=== PATIENT | female | born 1960 | race Caucasian/White ===

== ENCOUNTER 2018-02-27 17:56 | Emergency (ER) | payer OTHER, SELFPAY ==
[2018-02-27] MEDS: NS 1,000 ML IV ×2 (19:31)
[2018-02-27 19:44] LABS: BASO # 0.1 10^3/uL (0.0-0.2); BASO % 0.8 % (0.0-1.0); EOS # 0.4 10^3/uL (0.0-0.50); EOS % 4.5 % (0.0-3.0); HEMATOCRIT 48.8 % (36.0-47.0); HEMOGLOBIN 16.8 g/dl (12.0-15.5); IMMATURE GRANULOCYTE % 0.4 % (0-3.0); LYMPH # 1.7 10^3/uL (1.5-4.5); LYMPH % 17.8 % (24.0-44.0); MEAN CORPUSCULAR HEMOGLOBIN 27.6 pg (27.0-33.0); MEAN CORPUSCULAR HGB CONC 34.4 g/dl (32.0-36.5); MEAN CORPUSCULAR VOLUME 80.3 fl (80.0-96.0); MONO # 1.1 10^3/uL (0.0-0.8); NEUTROPHILS # 6.1 10^3/uL (1.8-7.7); NEUTROPHILS % 64.5 % (36.0-66.0); PLATELET COUNT, AUTOMATED 614 10^3/uL (150-450); RED BLOOD COUNT 6.08 10^6/uL (4.00-5.40); RED CELL DISTRIBUTION WIDTH 13.4 % (11.5-14.5); WHITE BLOOD COUNT 9.5 10^3/uL (4.0-10.0)
[2018-02-27 20:01] LABS: OSMOLALITY SERUM 290 MOSM/KG (275-295)
[2018-02-27 20:07] LABS: ESTIMATED AVERAGE GLUCOSE 200 MG/DL (60-110); HEMOGLOBIN A1c 8.6 %
[2018-02-27 20:10] LABS: ACETONE/KETONE 20.17 MG/DL (<2.81); ALBUMIN 4.3 GM/DL (3.2-5.2); ALKALINE PHOSPHATASE 70 U/L (45-117); ALT/SGPT 35 U/L (12-78); ANION GAP 10 MEQ/L (8-16); AST/SGOT 30 U/L (7-37); BILIRUBIN,DIRECT 0.3 MG/DL (0.0-0.2); BILIRUBIN,TOTAL 1.5 MG/DL (0.2-1.0); BLOOD UREA NITROGEN 21 MG/DL (7-18); CALCIUM LEVEL 10.1 MG/DL (8.5-10.1); CARBON DIOXIDE LEVEL 33 MEQ/L (21-32); CHLORIDE LEVEL 92 MEQ/L (98-107); CREATININE FOR GFR 0.74 MG/DL (0.55-1.30); GLOMERULAR FILTRATION RATE > 60.0 (>51); GLUCOSE, FASTING 157 MG/DL (70-100); LIPASE 290 U/L (73-393); MAGNESIUM LEVEL 2.2 MG/DL (1.8-2.4); PHOSPHORUS LEVEL 4.3 MG/DL (2.5-4.9); POTASSIUM SERUM 3.3 MEQ/L (3.5-5.1); SODIUM LEVEL 135 MEQ/L (136-145); TOTAL PROTEIN 8.2 GM/DL (6.4-8.2)
[2018-02-27 20:43] LABS: KETONE, URINE AUTO RFX 2+ mg/dL (NEGATIVE); MUCUS, URINE RFX LARGE (NEGATIVE); RBC, URINE AUTO RFX 1 /HPF (0-3); SPECIFIC GRAVITY UR AUTO RFX 1.024 (1.002-1.035); SQUAM EPITHELIAL CELL UR AURFX 1 /HPF (0-6); WBC, URINE AUTO RFX 5 /HPF (0-3)
[2018-02-27 20:44] LABS: LEUKOCYTE ESTERASE UR AUTO RFX 1+ (NEGATIVE); NITRITE, URINE AUTO RFX POSITIVE (NEGATIVE)
[2018-02-27] MEDS: PROMETHAZINE INJ 25 MG/ML VIAL (J2550) IV ×2 (20:45)
[2018-02-27 21:17] LABS: VENOUS BASE EXCESS 2.1 (-2.0-2.0); VENOUS HCO3 27.1 MEQ/L (23.0-27.0); VENOUS O2 SATURATION 75.7 % (60.0-80.0); VENOUS PARTIAL PRESSURE CO2 43.5 mmHg (38.0-50.0); VENOUS PARTIAL PRESSURE O2 41.2 mmHg (30.0-50.0); VENOUS PH 7.413 UNITS (7.330-7.430); VENOUS STANDARD HCO3 25.7 MEQ/L; VENOUS TOTAL CO2 28.5 MEQ/L (24.0-28.0)
[2018-02-27] MEDS: METOCLOPRAMIDE INJ 10MG/2ML VIAL (J2765) IV ×2 (21:50)
[2018-02-27] MEDS: NS 500 ML IV ×2 (21:51)
[2018-02-27] MEDS: ACETAMINOPHEN TAB 650MG DOSE (2X325MG) PO ×2 (23:55)
[2018-02-27] MEDS: CIPROFLOXACIN 500 MG TAB PO ×2 (23:55)
[2018-03-02 10:50] LABS: BEDSIDE GLUCOSE 181 MG/DL (70-105)
== END 2018-02-27 23:58 | disposition home or self-care (01) ==
LOC: M ED 17:56
DX: E11.65 Type 2 diabetes mellitus with hyperglycemia (principal); E86.0 Dehydration; N30.00 Acute cystitis without hematuria; I10 Essential (primary) hypertension; E78.5 Hyperlipidemia, unspecified; G43.909 Migraine, unspecified, not intractable, without status migrainosus; K21.9 Gastro-esophageal reflux disease without esophagitis; F32.9 Major depressive disorder, single episode, unspecified; F12.10 Cannabis abuse, uncomplicated; Z79.899 Other long term (current) drug therapy
CPT/HCPCS: J2765

== ENCOUNTER → 2018-04-30 | Outpatient (REF) | payer OTHER ==
[2018-05-02 11:06] LABS: HEPATITIS C VIRUS ABY INDEX 0.1 INDEX (<0.8)
[2018-05-02 11:06] LABS: HEPATITIS A ANTIBODY IGM NEGATIVE (NEGATIVE); HEPATITIS B CORE ANTIBODY IGM NEGATIVE (NEGATIVE); HEPATITIS B SURFACE ANTIGEN NEGATIVE (NEGATIVE)
== END ==
LOC: M LAB REF 17:16
DX: Z11.59 Encounter for screening for other viral diseases (principal)

== ENCOUNTER 2018-08-01 15:42 | Emergency (ER) | payer OTHER ==
[~2018-08-01] VITALS: Ht 167.6 cm; Wt 91.4 kg
[~2018-08-01 15:42] MED LIST: AMIT75TA PO; ATEN50TA2 PO; CETI10TA PO; CIPR-249 PO; CRES20TA PO; HYDR-3713; LEXA1TAB2 PO; MONT10TA2 PO; PANT20TA2 PO; REGL5TAB2 PO; SUCR1TAB56 PO; TRES1INJ2 SC; VICT18IN SQ
[2018-08-01 16:54] LABS: VENOUS BASE EXCESS 1.5 (-2.0-2.0); VENOUS HCO3 28.4 MEQ/L (23.0-27.0); VENOUS O2 SATURATION 55.7 % (60.0-80.0); VENOUS PARTIAL PRESSURE CO2 52.2 mmHg (38.0-50.0); VENOUS PARTIAL PRESSURE O2 32.1 mmHg (30.0-50.0); VENOUS PH 7.353 UNITS (7.330-7.430); VENOUS STANDARD HCO3 24.6 MEQ/L
[2018-08-01 16:55] LABS: BASO # 0.1 10^3/uL (0.0-0.2); BASO % 0.6 % (0.0-1.0); EOS # 1.8 10^3/uL (0.0-0.50); EOS % 14.1 % (0.0-3.0); HEMATOCRIT 48.9 % (36.0-47.0); HEMOGLOBIN 16.6 g/dl (12.0-15.5); LYMPH # 1.6 10^3/uL (1.5-4.5); LYMPH % 12.9 % (24.0-44.0); MEAN CORPUSCULAR HEMOGLOBIN 27.3 pg (27.0-33.0); MEAN CORPUSCULAR HGB CONC 33.9 g/dl (32.0-36.5); MEAN CORPUSCULAR VOLUME 80.4 fl (80.0-96.0); MONO # 1.2 10^3/uL (0.0-0.8); MONO % 9.1 % (0.0-5.0); PLATELET COUNT, AUTOMATED 601 10^3/uL (150-450); RED BLOOD COUNT 6.08 10^6/uL (4.00-5.40); WHITE BLOOD COUNT 12.7 10^3/uL (4.0-10.0)
[2018-08-01 17:23] LABS: HEMOGLOBIN A1c 7.8 %
[2018-08-01 17:32] LABS: OSMOLALITY SERUM 295 MOSM/KG (275-295)
[2018-08-01 17:36] LABS: ACETONE/KETONE 3.52 MG/DL (<2.81); ALBUMIN 4.8 GM/DL (3.2-5.2); ALT/SGPT 22 U/L (12-78); BILIRUBIN,DIRECT 0.2 MG/DL (0.0-0.2); BILIRUBIN,TOTAL 1.9 MG/DL (0.2-1.0); BLOOD UREA NITROGEN 20 MG/DL (7-18); CALCIUM LEVEL 10.3 MG/DL (8.5-10.1); CARBON DIOXIDE LEVEL 28 MEQ/L (21-32); CHLORIDE LEVEL 95 MEQ/L (98-107); CREATININE FOR GFR 0.93 MG/DL (0.55-1.30); GLOMERULAR FILTRATION RATE > 60.0 (>51); GLUCOSE, FASTING 231 MG/DL (70-100); LIPASE 145 U/L (73-393); MAGNESIUM LEVEL 2.1 MG/DL (1.8-2.4); PHOSPHORUS LEVEL 4.6 MG/DL (2.5-4.9); POTASSIUM SERUM 4.4 MEQ/L (3.5-5.1); SODIUM LEVEL 133 MEQ/L (136-145); TOTAL PROTEIN 8.9 GM/DL (6.4-8.2)
[2018-08-01] MEDS ORDERED: ONDANSETRON 4MG/2ML VIAL (J2405) IV ONE (17:45)
[2018-08-01] MEDS ORDERED: NS 1,000 ML IV ONE (17:45)
[2018-08-01] MEDS ORDERED: ZOFR4TAB14 PO (19:01)
[2018-08-01 19:11] VITALS: BP 172/114
[2018-08-01] MEDS ORDERED: ATENOLOL 50 MG TAB PO ONE (19:15)
[2018-08-01 19:22] VITALS: BP 182/110
== END 2018-08-01 19:27 | disposition home or self-care (01) ==
LOC: M ED 15:42
DX: E11.65 Type 2 diabetes mellitus with hyperglycemia (principal); I10 Essential (primary) hypertension; E78.00 Pure hypercholesterolemia, unspecified; F33.9 Major depressive disorder, recurrent, unspecified; G43.909 Migraine, unspecified, not intractable, without status migrainosus; Z79.899 Other long term (current) drug therapy
CPT/HCPCS: 80048; 80076; 81001; 82010; 82803; 83036; 83690; 83735; 83930; 84100; 85025; 96361; 96374; 99284; J2405

== ENCOUNTER → 2018-11-10 | Outpatient (REF) | payer OTHER ==
[~2018-11-10] MED LIST changes: -CRES20TA PO; +CRES20TA2 PO; +ZOFR4TAB14 PO
[2018-11-10 14:14] LABS: AMYLASE 49 U/L (25-115); LIPASE 216 U/L (73-393)
[2018-11-10 14:26] LABS: H PYLORI QUALITATIVE IgG NEGATIVE (NEGATIVE)
== END ==
LOC: M LAB REF 12:13
PROVIDERS: ATTEND Nurse Practitioner Adult Health
DX: R10.13 Epigastric pain (principal)

== ENCOUNTER 2019-03-10 22:26 | Emergency (ER) | payer SELFPAY ==
[~2019-03-10] VITALS: Ht 167.6 cm; Wt 100.0 kg
[2019-03-10] MEDS ORDERED: MONT10TA2 OR (22:42)
[2019-03-10 23:00] LABS: BASO # 0.1 10^3/uL (0.0-0.2); BASO % 0.4 % (0.0-1.0); EOS # 0.2 10^3/uL (0.0-0.50); EOS % 1.5 % (0.0-3.0); HEMOGLOBIN 12.4 g/dl (12.0-15.5); LYMPH # 0.9 10^3/uL (1.5-4.5); LYMPH % 7.8 % (24.0-44.0); MEAN CORPUSCULAR HEMOGLOBIN 28.4 pg (27.0-33.0); MEAN CORPUSCULAR HGB CONC 34.4 g/dl (32.0-36.5); MEAN CORPUSCULAR VOLUME 82.4 fl (80.0-96.0); MONO # 1.5 10^3/uL (0.0-0.8); MONO % 12.9 % (0.0-5.0); NEUTROPHILS # 8.8 10^3/uL (1.8-7.7); NEUTROPHILS % 76.9 % (36.0-66.0); PLATELET COUNT, AUTOMATED 405 10^3/uL (150-450); RED BLOOD COUNT 4.37 10^6/uL (4.00-5.40); WHITE BLOOD COUNT 11.4 10^3/uL (4.0-10.0)
[2019-03-10 23:15] LABS: BLOOD UREA NITROGEN 9 MG/DL (7-18); CALCIUM LEVEL 9.2 MG/DL (8.5-10.1); CARBON DIOXIDE LEVEL 31 MEQ/L (21-32); CHLORIDE LEVEL 98 MEQ/L (98-107); CK-MB VALUE MASS < 1.0 NG/ML (<3.6); CPK CREATINE PHOSPHOKINASE 122 U/L (26-192); GLOMERULAR FILTRATION RATE > 60.0 (>51); GLUCOSE, FASTING 227 MG/DL (70-100); MB/CK RELATIVE INDEX 0.82 (< OR =4); POTASSIUM SERUM 3.4 MEQ/L (3.5-5.1); SODIUM LEVEL 134 MEQ/L (136-145); TROPONIN I < 0.02 NG/ML (< 0.10)
[2019-03-11] MEDS ORDERED: KETOROLAC 30 MG/ML VIAL (J1885) IV ONE (01:15)
[2019-03-11] MEDS ORDERED: GI COCKTAIL 50ML BTL(HYOSCYAMINE/MAALOX/LIDOCAINE VISCOUS)(1:3:1) PO ONE (01:15)
--- NOTE | 2019-03-11 01:45 | REP ---
Clinical: Acute chest pain . Comparison: 02/27/2018 . Technique: PA and lateral. Findings: The mediastinum and cardiac silhouette are normal. The lung tom are clear and without acute consolidation, effusion, or pneumothorax. The skeletal structures are intact and normal. Impression: 1. No acute cardiopulmonary process. Electronically Signed by Blayne Coyle MD 03/11/2019 01:37 A
[2019-03-11] MEDS ORDERED: ISOVUE-370 76% 100ML VIAL (Q9967) As Ordered ONE (01:57)
--- NOTE | 2019-03-11 03:27 | REPVR ---
EXAM: CT Angiography Chest With Contrast EXAM DATE/TIME: 03/11/2019 1:53 AM CLINICAL HISTORY: 58 years old, female; Chest pain; Type not specified; Additional info: Cp TECHNIQUE: Imaging protocol: Axial computed tomographic angiography images of the chest with intravenous contrast using CT angiography protocol. Coronal and sagittal reformatted images were created and reviewed. 3D rendering: MIP reconstructed images were created and reviewed. Radiation optimization: All CT scans at this facility use at least one of these dose optimization techniques: automated exposure control; mA and/or kV adjustment per patient size (includes targeted exams where dose is matched to clinical indication); or iterative reconstruction. Contrast material: ISO;Contrast volume: 75 ml;Contrast route: AC; COMPARISON: CR Chest, 2 view PA, Lat 03/10/2019 11:03 PM FINDINGS: Pulmonary arteries: The main pulmonary artery measures 36 mm. No pulmonary embolism is identified. Aorta: The ascending thoracic aorta measures 28 mm. Lungs: Slight bibasilar interstitial prominence with minimal fibro-atelectatic change and minimal patchy groundglass infiltrates. Pleural space: Trace right pleural effusion. Heart: Unremarkable. No cardiomegaly. No pericardial effusion. Gallbladder and bile ducts: Status post cholecystectomy. Spleen: The spleen measures 13.1 cm. Lymph nodes: Borderline nodes in the azygo-esophageal recess. Bones/joints: Segmental ankylosis of the lower thoracic spine. Soft tissues: Unremarkable. IMPRESSION: 1. Borderline splenomegaly. 2. Trace right pleural effusion with slight bibasilar interstitial prominence and minimal fibro-atelectatic change and minimal patchy ground glass infiltrates. 3. Borderline mediastinal nodes in the azygo-esophageal recess. 4. Status post cholecystectomy. 5. Mild prominence of the main pulmonary artery measured 36 mm which may be seen with pulmonary hypertension. 6. Otherwise negative CTA chest. No pulmonary embolism is identified. Electronically signed by: Luis Fernando Hickman On 03/11/2019 03:27:19 AM
[2019-03-11 04:56] LABS: CK-MB VALUE MASS < 1.0 NG/ML (<3.6); CPK CREATINE PHOSPHOKINASE 100 U/L (26-192); TROPONIN I < 0.02 NG/ML (< 0.10)
[2019-03-11 05:15] VITALS: BP 128/68
--- NOTE | 2019-03-11 05:51 | ECGEPIP ---
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
--- NOTE | 2019-03-11 21:38 | ECGEPIP ---
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
== END 2019-03-11 05:29 | disposition home or self-care (01) ==
LOC: M ED 22:26
DX: R07.89 Other chest pain (principal); E11.9 Type 2 diabetes mellitus without complications; I10 Essential (primary) hypertension; F33.9 Major depressive disorder, recurrent, unspecified; K21.9 Gastro-esophageal reflux disease without esophagitis; Z79.899 Other long term (current) drug therapy; Z79.4 Long term (current) use of insulin
CPT/HCPCS: 36415; 71046; 71275; 80048; 82550; 82553; 84484; 85025; 93005; 93041; 94760; 96374; 99285; J1885; Q9967

== ENCOUNTER → 2020-08-10 | Outpatient (CLI) | payer OTHER ==
[~2020-08-10] MED LIST changes: -MONT10TA2 PO; +MONT5TAB2 OR; +MONT5TAB2 PO; -PANT20TA2 PO; +PANT20TA6 PO
--- NOTE | 2020-08-10 14:23 | REPMRS ---
Patient History The patient states she has not had a clinical breast exam in over a year. Patient is postmenopausal and is nulliparous. Family history of breast cancer at age 50 or over in maternal aunt, breast cancer at age 50 or over in maternal aunt, breast cancer at age 50 or over in maternal aunt, breast cancer at age 50 or over in maternal aunt, breast cancer at age 50 or over in maternal aunt, breast cancer at age 50 or over in paternal aunt. Benign excisional biopsy of the right breast, 1988. 3D TOMOSYNTHESIS WAS PERFORMED. The [facility] lifetime risk for breast cancer is 9.9%. Volpara breast density a. Digital Woman Screen Mammo: August 10, 2020 - Exam #: [id number] Bilateral CC and MLO view(s) were taken. Technologist: Myra Seth, Technologist Prior study comparison: 2019, bilateral digital mammo screening bilat, performed at [facility]. FINDINGS: There are scattered fibroglandular densities. There has been no change in the appearance of the mammogram from the prior studies. There is a mild amount of residual fibroglandular tissue which is fairly symmetric. There is no interval development of dominant mass, architectural distortion, or clustered microcalcification suggestive of malignancy. Assessment: BI-RADS/ACR category 1 mammogram. Negative Mammogram. Recommendation Routine screening mammogram in 1 year (for women over age 40). This mammogram was interpreted with the aid of an FDA-approved computer-aided dectection system. Electronically Signed By: Onel Barrera MD 08/10/20 0111
== END ==
LOC: M WHC 12:45
PROVIDERS: ATTEND Internal Medicine
DX: Z12.31 Encounter for screening mammogram for malignant neoplasm of breast (principal)

== ENCOUNTER → 2021-01-25 | Outpatient (REF) | payer OTHER ==
[~2021-01-25] MED LIST changes: +MONT10TA10 OR; +MONT10TA10 PO; -MONT5TAB2 OR; -MONT5TAB2 PO
== END ==
LOC: M LAB REF 15:11
PROVIDERS: ATTEND Nurse Practitioner Adult Health
DX: L02.31 Cutaneous abscess of buttock (principal)

== ENCOUNTER → 2021-01-27 | Outpatient (REF) | payer OTHER | LOC: M LAB REF 16:28 | PROVIDERS: ATTEND Nurse Practitioner Adult Health | DX: L02.31 Cutaneous abscess of buttock (principal) ==

== ENCOUNTER → 2021-03-08 | Outpatient (REF) | payer OTHER ==
[2021-03-10 04:10] LABS: LDL DIRECT 159 mg/dL (0-99)
== END ==
LOC: M LAB REF 16:36
PROVIDERS: ATTEND Nurse Practitioner Adult Health
DX: E78.00 Pure hypercholesterolemia, unspecified (principal)

== ENCOUNTER → 2021-06-12 | Outpatient (REF) | payer OTHER ==
[2021-06-14 16:09] LABS: Lyme Disease IgG/IgM Antibodie <0.91 ISR (0.00-0.90); Lyme Disease IgM Ab Quantitati <0.80 index (0.00-0.79)
== END ==
LOC: M LAB REF 16:20
PROVIDERS: ATTEND Nurse Practitioner Adult Health
DX: R53.83 Other fatigue (principal)

== ENCOUNTER 2021-10-03 11:06 | Emergency (ER) | payer OTHER ==
[~2021-10-03] VITALS: Ht 170.2 cm; Wt 100.0 kg
[~2021-10-03 11:06] MED LIST changes: -MONT10TA10 OR; -MONT10TA10 PO; +MONT10TA97 OR; +MONT10TA97 PO
[2021-10-03] MEDS ORDERED: AMIT50TA PO (11:27)
[2021-10-03] MEDS ORDERED: TRES1INJ SQ (11:27)
[2021-10-03] MEDS ORDERED: DULA3PEN SQ (11:27)
[2021-10-03] MEDS ORDERED: LEXA1TAB2 PO (11:27)
[2021-10-03] MEDS ORDERED: EZET10TA21 PO (11:27)
[2021-10-03] MEDS ORDERED: ROSU40TA4 PO (11:27)
[2021-10-03] MEDS ORDERED: NS 1,000 ML IV SCH (11:35)
[2021-10-03] MEDS ORDERED: METOCLOPRAMIDE INJ 10MG/2ML VIAL (J2765 PER 1) IV ONE (11:35)
[2021-10-03 12:04] LABS: BASO % 0.3 % (0.0-1.0); EOS # 0.1 10^3/uL (0.0-0.5); EOS % 0.4 % (0.0-3.0); HEMATOCRIT 42.3 % (36.0-47.0); HEMOGLOBIN 14.6 g/dl (12.0-15.5); LYMPH # 0.6 10^3/uL (1.5-5.0); LYMPH % 4.9 % (24.0-44.0); MEAN CORPUSCULAR HEMOGLOBIN 27.5 pg (27.0-33.0); MEAN CORPUSCULAR HGB CONC 34.5 g/dl (32.0-36.5); MEAN CORPUSCULAR VOLUME 79.8 fl (80.0-96.0); MONO # 0.6 10^3/uL (0.0-0.8); MONO % 4.7 % (2.0-8.0); NEUTROPHILS % 89.3 % (36.0-66.0); PLATELET COUNT, AUTOMATED 388 10^3/uL (150-450); WHITE BLOOD COUNT 12.4 10^3/uL (4.0-10.0)
[2021-10-03] MEDS ORDERED: ISOVUE-370 76% 100ML VIAL As Ordered ONE (12:05)
[2021-10-03] MEDS: MORPHINE 4 MG/ML 1ML VIAL/SYRINGE (J2270) IV PRN ×2 (12:11→14:09)
[2021-10-03 13:26] LABS: ALBUMIN 4.2 GM/DL (3.2-5.2); BILIRUBIN,DIRECT 0.1 MG/DL (0.0-0.2); BILIRUBIN,TOTAL 1.5 MG/DL (0.2-1.0); THYROID STIMULATING HORMONE 1.59 uIU/ML (0.358-3.740)
[2021-10-03] MEDS ORDERED: PROMETHAZINE INJ 25 MG/ML VIAL (J2550) IV ONE (13:55)
[2021-10-03] MEDS ORDERED: GI COCKTAIL 50ML BTL(HYOSCYAMINE/MAALOX/LIDOCAINE VISCOUS)(1:3:1) PO ONE (14:50)
[2021-10-03] MEDS ORDERED: CLOPIDOGREL 300 MG TAB (PLAVIX) PO ONE (15:55)
[2021-10-03] MEDS ORDERED: ASPIRIN 81 MG CHEW TABLET PO ONE (15:55)
[2021-10-03] MEDS ORDERED: HEPARIN SOD (PORCINE) 5000UNITS/ML 1ML VIAL/SYRINGE IV ONE (15:55)
[2021-10-03] MEDS ORDERED: HEPARIN DRIP 25,000 UNITS in IV 1 EA IV SCH (15:55)
[2021-10-03 17:01] LABS: RSV AMPLIFICATION NEGATIVE (NEGATIVE)
[2021-10-03 19:13] LABS: CK-MB VALUE MASS 2.7 NG/ML (<3.6); MB/CK RELATIVE INDEX 1.57 (< OR =4)
[2021-10-03 19:30] VITALS: BP 151/71
== END 2021-10-03 19:32 | disposition short-term general hospital (02) ==
LOC: M ED 11:06
DX: R07.9 Chest pain, unspecified (principal); I10 Essential (primary) hypertension; E11.9 Type 2 diabetes mellitus without complications; E78.5 Hyperlipidemia, unspecified; F32.9 Major depressive disorder, single episode, unspecified; F17.200 Nicotine dependence, unspecified, uncomplicated; Z79.899 Other long term (current) drug therapy
CPT/HCPCS: 71045; 71275; 74177; 80047; 80076; 82550; 82553; 83690; 83880; 84443; 85025; 87631; 93005; 93041; 94760; 96361; 96374; 96375; 96376; 99285; J1644; J2270; J2765; Q9967

== ENCOUNTER → 2022-11-05 | Outpatient (CLI) | payer OTHER ==
[~2022-11-05] MED LIST changes: +AMIT50TA PO; +DULA3PEN SQ; +EZET10TA21 PO; +ROSU40TA4 PO; +TRES1INJ SQ
== END ==
LOC: M WUC 14:24
PROVIDERS: ATTEND Nurse Practitioner Adult Health
DX: R05.9 Cough, unspecified (principal)

== ENCOUNTER → 2023-03-18 | Outpatient (CLI) | payer OTHER | LOC: M WHC 14:12 | PROVIDERS: ATTEND Nurse Practitioner Adult Health | DX: R92.8 Other abnormal and inconclusive findings on diagnostic imaging of breast (principal) ==

== ENCOUNTER → 2023-04-03 | Outpatient (CLI) | payer OTHER | LOC: M WHC 13:05 | PROVIDERS: ATTEND Nurse Practitioner Adult Health | DX: R92.8 Other abnormal and inconclusive findings on diagnostic imaging of breast (principal) ==

== ENCOUNTER 2023-05-07 08:17 | Day surgery (SDC) | payer OTHER ==
[~2023-05-07] VITALS: Ht 167.6 cm; Wt 87.8 kg
[~2023-05-07 08:17] MED LIST changes: +IRBE75TA4 PO; +METO1TAB7 PO; +NS 1,000 ML IV ONE
[2023-05-07 10:14] VITALS: TEMP 97.7
[2023-05-07 10:30] VITALS: BP 121/66; O2SAT 100
== END 2023-05-07 10:39 | disposition home or self-care (01) ==
LOC: M OPP 08:17
PROVIDERS: ATTEND Internal Medicine Gastroenterology
DX: Z12.11 Encounter for screening for malignant neoplasm of colon (principal); K63.5 Polyp of colon; K57.30 Diverticulosis of large intestine without perforation or abscess without bleeding; K64.8 Other hemorrhoids; I25.2 Old myocardial infarction; I10 Essential (primary) hypertension; E78.00 Pure hypercholesterolemia, unspecified; E11.9 Type 2 diabetes mellitus without complications; F32.A Depression, unspecified; Z79.4 Long term (current) use of insulin; Z79.85 Long-term (current) use of injectable non-insulin antidiabetic drugs; Z79.899 Other long term (current) drug therapy

== ENCOUNTER 2024-07-25 13:00 | Emergency (ER) | payer OTHER ==
[~2024-07-25] VITALS: Ht 167.6 cm; Wt 82.9 kg
[~2024-07-25 13:00] MED LIST changes: +IRBE75TA11 PO; -IRBE75TA4 PO; -NS 1,000 ML IV ONE; -ROSU40TA4 PO; +ROSU40TA81 PO
[2024-07-25] MEDS: BENZONATATE 100MG CAPSULE PO ONE (13:42)
[2024-07-25] MEDS: ALBUTEROL 90 MCG/ACT 8GM HFA INHALER INH ONE (13:42)
[2024-07-25] MEDS: methylPREDNISolone 125MG 2ML VIAL IV ONE (13:42)
[2024-07-25 13:48] LABS: BASO % 0.6 % (0.0-1.0); EOS # 0.4 10^3/uL (0.0-0.5); EOS % 6.4 % (0.0-3.0); HEMOGLOBIN 14.6 g/dl (12.0-15.5); LYMPH # 0.8 10^3/uL (1.5-5.0); MEAN CORPUSCULAR HEMOGLOBIN 28.9 pg (27.0-33.0); MEAN CORPUSCULAR VOLUME 85.1 fl (80.0-96.0); MONO % 15.2 % (2.0-8.0); NEUTROPHILS # 4.2 10^3/uL (1.5-8.5); NEUTROPHILS % 65.6 % (36.0-66.0); PLATELET COUNT, AUTOMATED 294 10^3/uL (150-450); RED BLOOD COUNT 5.05 10^6/uL (4.00-5.40); WHITE BLOOD COUNT 6.4 10^3/uL (4.0-10.0)
[2024-07-25] MEDS ORDERED: SEMA0.257 (13:52)
[2024-07-25] MEDS ORDERED: METO1TAB32 (13:52)
[2024-07-25] MEDS ORDERED: JARD1TAB3 (13:52)
[2024-07-25 14:09] LABS: LIPASE 35 U/L (12-53)
[2024-07-25 14:11] LABS: ALKALINE PHOSPHATASE 64 U/L (35-104); ALT/SGPT 23 U/L (7.0-40); AST/SGOT 17 U/L (<34); BILIRUBIN,DIRECT 0.5 MG/DL (<0.4); BILIRUBIN,TOTAL 1.6 MG/DL (0.3-1.2); BLOOD UREA NITROGEN 13 MG/DL (9-23); CALCIUM LEVEL 9.8 MG/DL (8.3-10.6); CARBON DIOXIDE LEVEL 26 MMOL/L (20-31); CHLORIDE LEVEL 101 MMOL/L (98-107); CK-MB VALUE MASS < 1.0 NG/ML (<3.6); CPK CREATINE PHOSPHOKINASE 87 U/L (34-145); CREATININE FOR GFR 0.63 MG/DL (0.55-1.30); GLOMERULAR FILTRATION RATE > 60.0 (>45); GLUCOSE, FASTING 135 MG/DL (74-106); MB/CK RELATIVE INDEX 1.14 (< OR =4); POTASSIUM SERUM 4.3 MMOL/L (3.5-5.1); SODIUM LEVEL 137 MMOL/L (136-145); TOTAL PROTEIN 7.5 G/DL (5.7-8.2)
[2024-07-25 14:15] LABS: FREE T4 0.98 NG/DL (0.89-1.76); THYROID STIMULATING HORMONE 2.425 uIU/ML (0.55-4.78)
[2024-07-25] MEDS ORDERED: PRED10TA2 PO (15:13)
[2024-07-25] MEDS ORDERED: VENTAER INH (15:13)
[2024-07-25 15:35] VITALS: BP 137/69; TEMP 98.6; O2SAT 94
== END 2024-07-25 15:38 | disposition home or self-care (01) ==
LOC: M ED 13:00
DX: J20.4 Acute bronchitis due to parainfluenza virus (principal); E11.9 Type 2 diabetes mellitus without complications; I25.2 Old myocardial infarction; K21.9 Gastro-esophageal reflux disease without esophagitis; G43.909 Migraine, unspecified, not intractable, without status migrainosus; Z79.899 Other long term (current) drug therapy
CPT/HCPCS: 71045; 80048; 80076; 82550; 82553; 83690; 83880; 84439; 84443; 84484; 85025; 85730; 87486; 87581; 87633; 87798; 93005; 93041; 94640; 94760; 96374; 99285; J2919

== ENCOUNTER → 2024-08-19 | Outpatient (CLI) | payer OTHER ==
[~2024-08-19] MED LIST changes: +JARD1TAB3; +METO1TAB32; +PRED10TA2 PO; +SEMA0.257; +VENTAER INH
== END ==
LOC: M WHC 15:41
PROVIDERS: ATTEND Nurse Practitioner Adult Health
DX: Z12.31 Encounter for screening mammogram for malignant neoplasm of breast (principal)

== ENCOUNTER → 2024-10-21 | Outpatient (CLI) | payer OTHER | LOC: M RAD 09:46 | PROVIDERS: ATTEND Nurse Practitioner Family | DX: M79.605 Pain in left leg (principal) ==

== ENCOUNTER → 2024-11-10 | Outpatient (CLI) | payer OTHER | LOC: M WUC 09:13 | PROVIDERS: ATTEND Nurse Practitioner Adult Health | DX: R20.0 Anesthesia of skin (principal); M47.816 Spondylosis without myelopathy or radiculopathy, lumbar region ==